=== PATIENT | female | born 1940 | race Caucasian/White ===

== ENCOUNTER 2024-04-25 08:13 | Inpatient (IN) | payer MEDICARE, OTHER, SELFPAY ==
[2024-04-20] VITALS (8 sets, daily range): BP systolic 110–154; BP diastolic 54–114; BMI 39.7; BMI 39.8
[2024-04-20 10:32] LABS: % Basophils 0.2 % (0-2); % Eosinophils 0.2 % (0-6); % Immature Granulocytes 0.4 % (0-0.5); % Lymphocytes 24.8 % (20.5-51.1); % Monocytes 11.3 % (1.7-9.3); % Neutrophils 63.1 % (42.2-75.2); Absolute Lymphocytes 1.3 10^3/uL (1.2-3.4); Absolute Monocytes 0.6 10^3/uL (0.1-0.6); Absolute Neutrophils 3.3 10^3/uL (1.4-6.5); Hematocrit 32.5 % (37.0-47.0); Hemoglobin 10.8 g/dL (12.0-16.0); Mean Corp Hgb Conc. 33.2 g/dL (33.0-37.0); Mean Corpuscular Hgb 28.3 pg (27.0-31.0); Mean Corpuscular Volume 85.1 fL (81.0-99.0); Mean Platelet Volume 11.7 fL (7.4-10.4); Nucleated Red Blood Cells % 0 %; Platelet Count 95 10^3/uL (130-400); Red Blood Cell Count 3.82 10^6/uL (4.20-5.40); Red Cell Dist. Width 14.1 % (11.5-14.5); White Blood Cell Count 5.2 10^3/uL (4.8-10.8)
[2024-04-20 10:45] LABS: ALT (SGPT) 33 U/L (0-35); AST (SGOT) 36 U/L (14-36); Albumin 3.4 g/dl (3.5-5.0); Alkaline Phosphatase 75 U/L (38-126); Blood Urea Nitrogen 34 mg/dl (7-17); Carbon Dioxide 31 mmol/L (22-30); Chloride 95 mmol/L (98-107); Estimated Creatinine Clearance 53 ml/min; Glucose 146 mg/dl (70-99); Potassium 3.9 mmol/L (3.5-5.1); Sodium 134 mmol/L (135-145); Total Bilirubin 0.8 mg/dl (0.2-1.3); Total Protein 6.4 g/dl (6.3-8.2); eGFR > 60.00
[2024-04-20 10:56] LABS: COVID-19 Antigen Negative (Negative)
[2024-04-20 11:10] LABS: Lactic Acid 1.1 mmol/L (0.7-2.0)
[2024-04-20] MEDS: DECADRON 10 MG IV (11:14)
[2024-04-20] MEDS: DUONEB 3 ML INH ×2 (11:14→14:25)
--- NOTE | 2024-04-20 11:48 | ED.GENMED ---
History of Present Illness
General
Chief Complaint: Breathing Problem
Source: patient and family
Exam Limitations: none
Time Seen by Provider: 04/20/24 10:11
Nursing documentation reviewed up to this point in time: agreed with
History of Present Illness
History of Present Illness:
84-year-old female past medical history of dementia, hypertension diabetes presenting to the emergency department today with concerns of generalized weakness fatigue altered mental status coughing shortness of breath worsening over the past 2 days.
Daughter also claims of had a flu like illness. She denies any specific chest pain. Here patient does have diffuse expiratory wheezing plan to start DuoNeb as well as steroid.
Past History
Past History
ED Past Medical History: HTN and IDDM
Social History
Tobacco: Non-smoker
Alcohol: None
Drug: None
Living: with family
Employment: Retired
Family History
Family History: Other (Daughter with COVID)
Review of Systems
Review of Systems
Allergies reviewed?: Yes
Unable to obtain full review of systems at this time due to: dementia
All Other Systems: ROS reviewed and negative except as documented in HPI and ROS
Phy Exam
Physical Exam
Physical Exam:
GENERAL: Alert , in no apparent distress
EYE: pupils equal and reactive
NECK: Supple, no significant adenopathy.
ENT: o/p clr, mmm.
CARDIAC: Regular rate and rhythm .
LUNGS: Diffuse expiratory wheezing
ABDOMEN: Soft, without focal tenderness, no r/g, no cvat
NEUROLOGICAL: Alert not oriented to person place or time no focal neuro deficits
SKIN: Warm and dry, skin intact.
MUSCULOSKELETAL: No edema, well perfused.
PSYCH: Normal and appropriate interaction.
Scores
Heart Failure Risk
Heart Failure Risk Score: Not Applicable
Course
Orders/Labs/Results
Orders:
Orders
04/20/24 10:19
COVID-19 Antigen Urgent
Source: Nasal Swab
Influenza A+B Rapid Molecular Urgent
CHARLES Source: Nasal Swab
Specimen Description:
04/20/24 10:23
Complete Blood Count/With Diff Urgent
Comprehensive Metabolic Panel Urgent
04/20/24 10:25
Urinalysis Reflex To Culture Urgent
Dexamethasone Sod Phosphate [Decadron] 10 mg IV NOW STA
Ipratropium/Albuterol Sulfate [Duoneb] 3 ml INH R NOW ONE
Chest [CR Chest - 2 Views ] Urgent
Comment:
Reason For Exam: cough fever/sob
04/20/24 10:43
Lactic Acid Urgent
04/20/24 14:13
Ipratropium/Albuterol Sulfate [Duoneb] 3 ml INH R NOW ONE
Oseltamivir Phosphate [Tamiflu] 75 mg PO NOW STA
Abnormal Lab Results
04/20/24 04/20/24
10:23 11:47
RBC 3.82 L 10^6/uL
(4.20-5.40)
Hgb 10.8 L g/dL
(12.0-16.0)
Hct 32.5 L %
(37.0-47.0)
Plt Count 95 L 10^3/uL
(130-400)
MPV 11.7 H fL
(7.4-10.4)
Monocytes % 11.3 H %
(1.7-9.3)
Sodium 134 L mmol/L
(135-145)
Chloride 95 L mmol/L
(98-107)
Carbon Dioxide 31 H mmol/L
(22-30)
BUN 34 H mg/dl
(7-17)
Glucose 146 H mg/dl
(70-99)
Calcium 8.0 L mg/dl
(8.4-10.2)
Albumin 3.4 L g/dl
(3.5-5.0)
POC Glucose 139 H mg/dl
(70-99)
04/20/24 10:23
04/20/24 10:23
Vital Signs
Initial and Last Documented VS:
Initial Vital Signs
Temp Pulse Resp BP Pulse Ox
100.2 F 64 16 117/100 90
04/20/24 10:09 04/20/24 10:09 04/20/24 10:09 04/20/24 10:09 04/20/24 10:09
Last Documented Vital Signs
Temp Pulse Resp BP Pulse Ox
100.2 F 69 17 136/94 94
04/20/24 10:09 04/20/24 13:45 04/20/24 13:45 04/20/24 13:00 04/20/24 13:30
MDM/Problems Addressed
MDM/Problems Addressed:
84-year-old female presenting to the emergency department today with concerns of worsened confusion generalized weakness fatigue and respiratory issues over the past few days. Here she has significant expiratory wheezing with started on DuoNeb and
steroid. X-ray did not show any evidence of pneumonia. Patient was given DuoNeb and steroid reassess still ongoing significant wheezing. Also positive for the flu. Plan to admit concerning patient has dementia lives at home in private residence
is much weaker than usual trouble with ambulating today. Also started on Tamiflu today.
*Critical Care Note
Total Time (30-74mins, 75-104mins- exclusive of procedures): Not Applicable
ED Attending Note
-
Portions of this chart may have been created with voice recognition software.� Occasional wrong word or��sound alike� substitutions may have occurred due to the inherent limitations of voice recognition software.
Discharge Plan
Departure
Patient Disposition: Admit
Date of Disposition: 04/20/24
Time of Disposition: 14:19
Admit to: Med/Surg
Admit to doctor: Juvencio
Presentation/result/management discussed w/ accepting MD/DO: Hospitalist
Patient with high blood pressure during this ER visit?: No
Condition: Good
Covid-19: Not Applicable
Discharge Problem:
Influenza, Asthma exacerbation
Prescriptions:
No Action
losartan 50 mg Tablet
50 mg PO DAILY
pioglitazone [Actos] 15 mg Tablet
15 mg PO DAILY
metformin 500 mg Tablet
500 mg PO BID
promethazine-DM 6.25-15 mg/5 mL Syrup
5 ml PO QIDPRN PRN (Reason: COUGH)
carvedilol [Coreg] 12.5 mg Tablet
12.5 mg PO BID
albuterol sulfate 2.5 mg /3 mL (0.083 %) Solution For Nebulization
2.5 mg INHALATION R Q4HPRN PRN (Reason: SOB)
azithromycin 250 mg Tablet
0 mg PO .COMPLEX
Rx Instructions:
For 250 mg dose pack: take 500 mg today (day 1), then 250 mg for 4 days (days 2-5)
indapamide 2.5 mg Tablet
2.5 mg PO DAILY
repaglinide 1 mg Tablet
1 mg PO BID
memantine 10 mg Tablet
10 mg PO BID
insulin glargine-yfgn 100 unit/mL (3 mL) Insulin Pen
20 unit SC BID
magnesium oxide 400 mg magnesium Tablet
400 mg PO DAILY
loperamide 2 mg Tablet
2 mg PO Q6HPRN PRN (Reason: diarrhea)
Referrals:
Kevin Mcgee DO [Family Provider] -
Interventions
Interventions:
*Risk Screen - Suicide Last Done: 04/20/24 10:15
*General Assessment Last Done: 04/20/24 11:38
*Neglect/Abuse Screening Last Done: 04/20/24 10:15
*ED COVID-19 Vaccine History Last Done: 04/20/24 11:38
ED- Cardiac Assessment Last Done: 04/20/24 10:29
ED- Neurological Assessment Last Done: 04/20/24 10:29
ED- Pulmonary Assessment Last Done: 04/20/24 10:29
Discharge Date and Time
Print Language: UKRAINIAN
[2024-04-20 11:49] LABS: Glucose - Point of Care 139 mg/dl (70-99)
--- NOTE | 2024-04-20 14:22 | HPS.HSE ---
Family Physician
-
Family Physician: Kevin Mcgee
Chief Complaint
-
Shortness of breath
History of Present Illness
Patient 84 years old female with history of hypertension, diabetes mellitus, dementia, came into the hospital with cough and shortness of breath. I am unable to gather accurate information from the patient due to her dementia so most of the
information from the medical records and ER staff. Patient has been having increasing cough associated with shortness of breath over the last couple days associated with generalized malaise and generalized weakness and some mental status changes.
Patient was started on IV steroids and Tamiflu as well as DuoNeb in the ED. She had a chest x-ray unremarkable for any acute abnormalities. She was referred to hospitalist service for evaluation.
Medical History
Past Medical History
Past Medical History: Reports Other (Hypertension, diabetes mellitus, dementia.)
Past Surgical History: Reports None
Social History
Unable to obtain full social history at this time due to: Dementia
Family History
Family History: Not pertinent
Allergies / Home Medications
Allergies reflects when Allergies were last updated in [facility].
Home Medications with original date entered in [facility]
Allergy/Medication List:
Allergies
Allergy/AdvReac Type Severity Reaction Status Date / Time
No Known Allergies Allergy Unverified 04/20/24 10:09
Home Medications
albuterol sulfate 2.5 mg/3 mL (0.083 %) solution for nebulization 2.5 mg inhalation R Q4HPRN PRN SOB 04/20/24
azithromycin 250 mg tablet 0 mg PO .COMPLEX Infection 04/20/24
carvedilol 12.5 mg tablet (Coreg) 12.5 mg PO BID Blood Pressure 04/20/24
indapamide 2.5 mg tablet 2.5 mg PO DAILY Blood Pressure 04/20/24
insulin glargine-yfgn 100 unit/mL (3 mL) subcutaneous pen 20 unit SC BID Diabetes 04/20/24
loperamide 2 mg tablet 2 mg PO Q6HPRN PRN diarrhea 04/20/24
losartan 50 mg tablet 50 mg PO DAILY Blood Pressure 04/20/24
magnesium oxide 400 mg PO DAILY Supplement 04/20/24
memantine 10 mg tablet 10 mg PO BID Neurological Condition 04/20/24
metformin 500 mg tablet 500 mg PO BID Diabetes 04/20/24
pioglitazone 15 mg tablet (Actos) 15 mg PO DAILY Diabetes 04/20/24
promethazine-DM 6.25 mg-15 mg/5 mL oral syrup 5 ml PO QIDPRN PRN COUGH 04/20/24
repaglinide 1 mg tablet 1 mg PO BID Diabetes 04/20/24
Review of Systems
-
Unable to obtain full review of systems at this time due to: Dementia
Physical Exam
Vital Signs
Vital Signs
Temp Pulse Resp BP Pulse Ox
100.2 F 69 17 136/94 94
04/20/24 10:09 04/20/24 13:45 04/20/24 13:45 04/20/24 13:00 04/20/24 13:30
Physical exam:
General: Acutely ill
HEENT: Normocephalic, Atraumatic and Moist Mucous Membranes
Respiratory: Few rhonchi bilaterally; Negative Wheezes, Rales
Cardiac: Regular Rhythm and S1/S2
GI: Soft, Nontender and Nondistended
Musculoskeletal: No Clubbing, No Cyanosis and No Edema
Neuro: Awake, Alert and disoriented, no neurological deficit
Psych: Calm
Physical Exam
General: Other
Laboratory Results
-
04/20/24 10:23
04/20/24 10:23
Laboratory Results
Lactic Acid 1.1 mmol/L (0.7-2.0) 04/20/24 10:43
Total Bilirubin 0.8 mg/dl (0.2-1.3) 04/20/24 10:23
AST 36 U/L (14-36) 04/20/24 10:23
ALT 33 U/L (0-35) 04/20/24 10:23
Alkaline Phosphatase 75 U/L (38-126) 04/20/24 10:23
Data Reviewed
-
Diagnostic Radiology: Image Personally Visualized and interpreted
Lab Data: Labs Reviewed by me
Impression/Plan
-
IMPRESSION:
Patient 84 years old female who has multiple comorbidities came into the hospital cough shortness of breath and found to have influenza A. She also has a bronchospasm in the ER given some steroids.
PLAN:
Acute influenza A:
Tamiflu
Monitor respiratory status
Chest x-ray no evidence of pneumonia
Bronchospasm:
She was given IV steroids in the ER and by the time of my evaluation she was much improved
Consider oral steroids but can inhibit viral replication-but if she needs it we will do a short course.
Hypertension:
Continue home antihypertensive
Diabetes mellitus type 2:
Insulin sliding scale
Diabetic diet
Continue oral hypoglycemics with pioglitazone and repaglinide but hold metformin
Monitor blood sugars and adjust medications according
Update hemoglobin A1c
Dementia:
Continue Namenda
Monitor behavioral status
DVT prophylaxis:
Lovenox SQ
CODE STATUS:
Full code
Time spent 75 min
[2024-04-20] MEDS: TAMIFLU 75 MG PO (14:25)
[2024-04-20] MEDS: LOVENOX 40 MG SC (20:10)
[2024-04-20] MEDS: LOZOL 2.5 MG PO (20:10)
[2024-04-20] MEDS: ACTOS 15 MG PO (20:10)
[2024-04-20] MEDS: COZAAR 50 MG PO (20:10)
[2024-04-20] MEDS: COREG 12.5 MG PO (20:35)
[2024-04-20] MEDS: PRANDIN 1 MG PO (20:35)
[2024-04-20] MEDS: NAMENDA 10 MG PO (20:35)
--- NOTE | 2024-04-20 21:00 | TRANSFER ---
Pt admitted from ED to room 424. Pt assisted to stand and pivot to bed. Pt on 4 liters 02 98%. Pt disoriented to place and time, bed alarm in placed for safety. Pt oriented to plan of care and call parra within reach.
[2024-04-20 21:35] LABS: Glucose - Point of Care 346 mg/dl (70-99)
[2024-04-20] MEDS: VENTOLIN NEBULES 2.5 MG INH (21:47)
[2024-04-20] MEDS: NOVOLOG FLEXPEN 10 UNITS SC (22:10)
[2024-04-20] MEDS: LANTUS 0.2 UNITS SC (22:10)
[2024-04-20] MEDS: TAMIFLU 30 MG PO (22:10)
[2024-04-20] MEDS: NOVOLOG FLEXPEN-MODERATE RESISTANCE SC (23:08)
[2024-04-21 07:42] LABS: Glucose - Point of Care 195 mg/dl (70-99)
[2024-04-21 07:43] VITALS: BP 143/44
--- NOTE | 2024-04-21 08:49 | W.PN.HOSP.TC ---
Today's Communication/Plan
-
Tamiflu. Steroids
Assessment / Plan
Assessment / Plan
Physical exam:
General: Acute on chronically ill
HEENT: Normocephalic, Atraumatic and Moist Mucous Membranes
Respiratory: Bilateral rhonchi; Negative Wheezes, Rales
Cardiac: Regular Rhythm and S1/S2
GI: Soft, Nontender and Nondistended
Musculoskeletal: No Clubbing, No Cyanosis and No Edema
Neuro: Awake, Alert and disoriented, no gross neurological deficit
Psych: Calm
A/P:
Acute influenza A:
Tamiflu
Monitor respiratory status
Chest x-ray no evidence of pneumonia
Bronchospasm:
She was given IV steroids in the ER and by the time of my evaluation she was much improved
Continue short oral course of steroids
Hypertension:
Continue home antihypertensive
Diabetes mellitus type 2:
Insulin sliding scale
Diabetic diet
Continue oral hypoglycemics with pioglitazone and repaglinide but hold metformin
Monitor blood sugars and adjust medications according
Update hemoglobin A1c
Dementia:
Continue Namenda
Monitor behavioral status
DVT prophylaxis:
Lovenox SQ
CODE STATUS:
Full code
Anticipated Discharge: 24 - 48 hours
Subjective/Interval History
-
Date of Service: April 21, 2024
Patient with some shortness of breath. Afebrile
Objective Data
-
Labs:
Laboratory Results
04/21/24
07:58
WBC Pending
Hgb Pending
Hct Pending
Plt Count Pending
Sodium Pending
Potassium Pending
Chloride Pending
Carbon Dioxide Pending
BUN Pending
Creatinine Pending
Glucose Pending
Calcium Pending
Vital Signs:
Vital Signs
Temp Pulse Resp BP Pulse Ox
97.8 F 66 22 114/54 94
04/20/24 23:00 04/20/24 23:00 04/20/24 23:00 04/20/24 23:00 04/21/24 03:40
I&O
04/20/24 04/21/24 04/22/24
06:59 06:59 06:59
Intake Total 240 / 240
Balance 240 / 240
[2024-04-21] MEDS: LOZOL 2.5 MG PO (09:06)
[2024-04-21] MEDS: TAMIFLU 30 MG PO ×2 (09:06→20:20)
[2024-04-21] MEDS: MAG-TAB SR 84 MG PO (09:07)
[2024-04-21] MEDS: DELTASONE 40 MG PO (09:07)
[2024-04-21] MEDS: ACTOS 15 MG PO (09:07)
[2024-04-21] MEDS: NAMENDA 10 MG PO ×2 (09:07→20:20)
[2024-04-21] MEDS: PRANDIN 1 MG PO ×2 (09:07→20:20)
[2024-04-21] MEDS: COZAAR 50 MG PO (09:08)
[2024-04-21] MEDS: COREG 12.5 MG PO ×2 (09:08→20:20)
[2024-04-21 09:17] LABS: Blood Urea Nitrogen 37 mg/dl (7-17); Calcium 8.8 mg/dl (8.4-10.2); Carbon Dioxide 27 mmol/L (22-30); Chloride 98 mmol/L (98-107); Estimated Creatinine Clearance 57 ml/min; Glucose 178 mg/dl (70-99); Sodium 136 mmol/L (135-145); eGFR > 60.00
[2024-04-21 09:19] LABS: % Immature Granulocytes 0.2 % (0-0.5); % Lymphocytes 26.4 % (20.5-51.1); % Monocytes 10.2 % (1.7-9.3); % Neutrophils 63.2 % (42.2-75.2); Absolute Lymphocytes 1.2 10^3/uL (1.2-3.4); Absolute Monocytes 0.5 10^3/uL (0.1-0.6); Absolute Neutrophils 2.8 10^3/uL (1.4-6.5); Hematocrit 34.1 % (37.0-47.0); Hemoglobin 11.5 g/dL (12.0-16.0); Mean Corp Hgb Conc. 33.7 g/dL (33.0-37.0); Nucleated Red Blood Cells % 0 %; Platelet Count 106 10^3/uL (130-400); Red Blood Cell Count 4.11 10^6/uL (4.20-5.40); Red Cell Dist. Width 13.5 % (11.5-14.5); White Blood Cell Count 5.3 10^3/uL (4.8-10.8)
[2024-04-21] MEDS: NOVOLOG FLEXPEN-MODERATE RESISTANCE 1 UNITS SC (09:24)
[2024-04-21] MEDS: LANTUS 0.2 UNITS SC ×2 (09:24→23:56)
[2024-04-21 12:38] LABS: Glucose - Point of Care 333 mg/dl (70-99)
[2024-04-21] MEDS: NOVOLOG FLEXPEN-MODERATE RESISTANCE 7 UNITS SC ×2 (12:42→16:50)
[2024-04-21 12:50] LABS: Glycohemoglobin (HgbA1c) 9.4 % (4.0-5.6)
[2024-04-21 14:54] VITALS: BP 118/60; PULSE 59; PULSE 60; O2SAT 97; O2SAT 98
[2024-04-21 15:12] VITALS: BP 104/62
[2024-04-21 16:33] LABS: Glucose - Point of Care 322 mg/dl (70-99)
[2024-04-21 16:39] LABS: Urine Albumin Negative (Neg - Trace); Urine Bilirubin Negative (Negative); Urine Character Clear (Clear); Urine Color Yellow; Urine Glucose 3+ (Negative); Urine Ketone Negative (Negative); Urine Leukocyte Negative (Negative); Urine Nitrite Negative (Negative); Urine Occult Blood Negative (Negative); Urine Specific Gravity 1.015 (<1.030); Urine Urobilinogen Negative (Neg - 1+)
[2024-04-21] MEDS: LOVENOX 40 MG SC (16:50)
[2024-04-21 22:00] LABS: Glucose - Point of Care 410 mg/dl (70-99)
[2024-04-21 22:51] LABS: Glucose 412 mg/dl (70-99)
[2024-04-21] MEDS: NOVOLOG FLEXPEN 11 UNITS SC (23:56)
[2024-04-22 00:01] VITALS: BP 154/59
[2024-04-22 02:44] LABS: Glucose - Point of Care 203 mg/dl (70-99)
[2024-04-22 08:16] LABS: Glucose - Point of Care 130 mg/dl (70-99)
[2024-04-22] MEDS: NOVOLOG FLEXPEN-MODERATE RESISTANCE SC (08:21)
[2024-04-22] MEDS: TAMIFLU 30 MG PO ×2 (08:24→20:25)
[2024-04-22] MEDS: MAG-TAB SR 84 MG PO (08:24)
[2024-04-22] MEDS: PRANDIN 1 MG PO ×2 (08:24→20:25)
[2024-04-22] MEDS: NAMENDA 10 MG PO ×2 (08:24→20:25)
[2024-04-22] MEDS: COZAAR 50 MG PO (08:25)
[2024-04-22] MEDS: COREG 12.5 MG PO ×2 (08:25→20:25)
[2024-04-22] MEDS: LOZOL 2.5 MG PO (08:25)
[2024-04-22] MEDS: ACTOS 15 MG PO (08:25)
[2024-04-22] MEDS: DELTASONE 30 MG PO (08:25)
[2024-04-22] MEDS: LANTUS 0.2 UNITS SC ×2 (08:27→21:41)
[2024-04-22 08:52] VITALS: BP 157/59
--- NOTE | 2024-04-22 10:21 | W.PN.HOSP.TC ---
Today's Communication/Plan
-
Continue Tamiflu. Discharge planning
Assessment / Plan
Assessment / Plan
Physical exam:
General: Acute on chronically ill
HEENT: Normocephalic, Atraumatic and Moist Mucous Membranes
Respiratory: Bilateral rhonchi; Negative Wheezes, Rales
Cardiac: Regular Rhythm and S1/S2
GI: Soft, Nontender and Nondistended
Musculoskeletal: No Clubbing, No Cyanosis and No Edema
Neuro: Awake, Alert and disoriented, no gross neurological deficit
Psych: Calm
A/P:
Acute influenza A:
Tamiflu
Monitor respiratory status
Chest x-ray no evidence of pneumonia
Tried to reach family but unsuccessful today. I did talk to nurse case manager who was able to discuss with family earlier today and apparently relatives are all sick with viral illness and they would not be able to take her home anyway at least today.
Bronchospasm:
Improving
Received some steroids intravenous and oral.
I think at this juncture we will stop the steroids since she is not bronchospastic and as I said before this would impair viral replication, make her diabetes less well-controlled, and also can induce psychosis in a patient with dementia.
Reevaluate clinically
Hypertension:
Continue home antihypertensive
Diabetes mellitus type 2:
Insulin sliding scale
Diabetic diet
Continue oral hypoglycemics with pioglitazone and repaglinide but hold metformin
Monitor blood sugars and adjust medications according
Update hemoglobin A1c
Dementia:
Continue Namenda
Monitor behavioral status
DVT prophylaxis:
Lovenox SQ
CODE STATUS:
Full code
Anticipated Discharge: Within 24 hours
Subjective/Interval History
-
Date of Service: April 22, 2024
Patient alert but disoriented. Less cough. Afebrile
Objective Data
-
Labs:
Laboratory Results
04/21/24
22:14
Glucose 412 H
Vital Signs:
Vital Signs
Temp Pulse Resp BP Pulse Ox
97.6 F 54 20 157/59 99
04/22/24 08:52 04/22/24 08:52 04/22/24 08:52 04/22/24 08:52 04/22/24 08:52
I&O
04/21/24 04/22/24 04/23/24
06:59 06:59 06:59
Intake Total 240 / 240 240 / 240
Output Total 300 / 300
Balance 240 / 240 -60 / -60
--- NOTE | 2024-04-22 11:57 | CM ---
Pt has dementia, unable to participate in assessment. CM spoke w/ pt's daughter, Emelia, who is currently w/ the flu. Initial assessment completed. Admitted for cough and shortness of breath. Positive for flu.
Emelia stated that pt lives w/ her in a [facility]ST[facility]- 4 steps to enter. Pt is independent in the home but does use a walker when out in the community. Emelia stated she assists pt w/ bathing, toileting, cooking meals, and medication administration.
Denies SNF/VN/PT hx. Emelia stated pt does not receive any home or OP services but does go to an adult day care during the week but hasn't been going because she's been sick.
Address, points of contact and insurance verified
PCP: Dr. Mcgee
Pharmacy: [facility]. Pt does use [facility] for mail orders
PT evaluated and is recommending HH at d/c. CM discussed w/ Emelia who will decide if pt needs this closer to d/c.
Pt is admitted as OBS. ROCA reviewed w/ daughter, copy on chart
Plan: Home w/ HH if daughter is agreeable at d/c
[2024-04-22 12:09] LABS: Glucose - Point of Care 266 mg/dl (70-99)
[2024-04-22] MEDS: NOVOLOG FLEXPEN-MODERATE RESISTANCE 5 UNITS SC (12:11)
[2024-04-22 15:15] VITALS: BP 151/68
[2024-04-22 16:52] LABS: Glucose - Point of Care 323 mg/dl (70-99)
[2024-04-22] MEDS: NOVOLOG FLEXPEN-MODERATE RESISTANCE 7 UNITS SC (17:24)
[2024-04-22] MEDS: LOVENOX 40 MG SC (17:25)
[2024-04-22 21:15] LABS: Glucose - Point of Care 281 mg/dl (70-99)
[2024-04-22 23:49] VITALS: BP 140/60
[2024-04-23 07:00] VITALS: BP 160/64
[2024-04-23 08:02] LABS: Glucose - Point of Care 97 mg/dl (70-99)
[2024-04-23] MEDS: NOVOLOG FLEXPEN-MODERATE RESISTANCE SC (08:12)
[2024-04-23] MEDS: LANTUS 0.2 UNITS SC (08:17)
[2024-04-23] MEDS: TAMIFLU 30 MG PO ×2 (08:18→19:18)
[2024-04-23] MEDS: NAMENDA 10 MG PO ×2 (08:18→19:18)
[2024-04-23] MEDS: ACTOS 15 MG PO (08:18)
[2024-04-23] MEDS: COZAAR 50 MG PO (08:18)
[2024-04-23] MEDS: COREG 12.5 MG PO ×2 (08:18→19:18)
[2024-04-23] MEDS: PRANDIN 1 MG PO ×2 (08:18→19:18)
[2024-04-23] MEDS: MAG-TAB SR 84 MG PO (08:18)
[2024-04-23] MEDS: LOZOL 2.5 MG PO (08:18)
--- NOTE | 2024-04-23 10:01 | W.PN.HOSP.TC ---
Today's Communication/Plan
-
chest x ray in am
one dose steroid IV
Tamiflu day 4
Assessment / Plan
Assessment / Plan
Physical exam:
General: not in distress, chronically ill
HEENT: Normocephalic, Atraumatic and Moist Mucous Membranes
Respiratory: Bilateral Wheezes, Rales
Cardiac: Regular Rhythm and S1/S2
GI: Soft, Nontender and Nondistended
Musculoskeletal: No Clubbing, No Cyanosis and No Edema
Neuro: Awake, Alert and disoriented X3 , no gross neurological deficit
Psych: Calm
A/P:
Acute influenza A:
Much less wheezing with no significant cough
Tamiflu, day 4
Monitored respiratory status
Chest x-ray no evidence of pneumonia
Will repeat chest x ray in am
Added SoluMedrol 40 mg QD one time to re-assess
Added Mucinex
# Essential Hypertension:
Continue home antihypertensive
Diabetes mellitus type 2:
Uncontrolled, will give extra dose of Lantus since we gave steroid.
Insulin sliding scale
Diabetic diet
Continue oral hypoglycemics with pioglitazone and repaglinide but hold metformin
Monitor blood sugars and adjust medications according
Update hemoglobin A1c 9.4 ( poorly controlled in OP setting, advised to f/w PCP)
Dementia:
Continue Namenda
Monitor behavioral status
DVT prophylaxis:
Lovenox SQ
CODE STATUS:
Full code
Total time spent to see the patient, examine the patient, review data and lab results, discuss treatment plan with patient and nursing staff around 55 minutes
Anticipated Discharge: 24 - 48 hours
Subjective/Interval History
-
Date of Service: April 23, 2024
Still wheezes with cough
Objective Data
-
Vital Signs:
Vital Signs
Temp Pulse Resp BP Pulse Ox
98.1 F 56 22 160/64 99
04/23/24 07:00 04/23/24 07:00 04/23/24 07:00 04/23/24 07:00 04/23/24 07:00
I&O
04/22/24 04/23/24 04/24/24
06:59 06:59 06:59
Intake Total 240 / 240 1380 / 1380
Output Total 300 / 300
Balance -60 / -60 1380 / 1380
[2024-04-23 11:36] LABS: Glucose - Point of Care 182 mg/dl (70-99)
[2024-04-23] MEDS: NOVOLOG FLEXPEN-MODERATE RESISTANCE 1 UNITS SC (13:01)
[2024-04-23] MEDS: SOLU-MEDROL PF 40 MG IV (14:24)
[2024-04-23 15:00] VITALS: BP 132/55
[2024-04-23 16:44] LABS: Glucose - Point of Care 247 mg/dl (70-99)
[2024-04-23] MEDS: NOVOLOG FLEXPEN-MODERATE RESISTANCE 3 UNITS SC (17:30)
[2024-04-23] MEDS: LOVENOX 40 MG SC (17:30)
[2024-04-23 21:44] LABS: Glucose - Point of Care 425 mg/dl (70-99)
[2024-04-23 23:05] VITALS: BP 130/52
[2024-04-23 23:17] LABS: Glucose 443 mg/dl (70-99)
[2024-04-24] MEDS: NOVOLOG FLEXPEN 11 UNITS SC (00:17)
[2024-04-24] MEDS: LANTUS 0.2 UNITS SC ×2 (00:17→09:34)
[2024-04-24 02:47] LABS: Glucose - Point of Care 333 mg/dl (70-99)
[2024-04-24 07:00] VITALS: BP 173/67
[2024-04-24 07:58] LABS: Glucose - Point of Care 220 mg/dl (70-99)
[2024-04-24 09:11] VITALS: O2SAT 95
[2024-04-24] MEDS: COREG 12.5 MG PO ×2 (09:27→19:33)
[2024-04-24] MEDS: COZAAR 50 MG PO (09:29)
[2024-04-24] MEDS: TAMIFLU 30 MG PO ×2 (09:29→19:33)
[2024-04-24] MEDS: MAG-TAB SR 84 MG PO (09:29)
[2024-04-24] MEDS: ACTOS 15 MG PO (09:29)
[2024-04-24] MEDS: PRANDIN 1 MG PO ×2 (09:29→19:34)
[2024-04-24] MEDS: NAMENDA 10 MG PO ×2 (09:29→19:33)
[2024-04-24] MEDS: LOZOL 2.5 MG PO (09:30)
[2024-04-24] MEDS: NOVOLOG FLEXPEN-MODERATE RESISTANCE 3 UNITS SC (09:31)
[2024-04-24 12:01] LABS: Glucose - Point of Care 267 mg/dl (70-99)
--- NOTE | 2024-04-24 12:17 | CM ---
CM reviewed chart, call placed to patients daughter, Emelia, to discuss VN recommendation. Patients daughter reports patient attends [facility] 9:30-5:00 p.m. is not considered homebound, aware PCP can order VN services after discharge.
Daughter reports she also is sick with flu, will provide transportation home to patient when stable. CM will continue to follow for all discharge planning needs.
Plan; home with daughter when stable.
[2024-04-24] MEDS: NOVOLOG FLEXPEN-MODERATE RESISTANCE 5 UNITS SC ×2 (13:05→17:34)
--- NOTE | 2024-04-24 13:22 | W.PN.HOSP.TC ---
Today's Communication/Plan
-
Increase Lantus
Add pre-meal insulin
d/w daughter over the phone, dc in am
Assessment / Plan
Assessment / Plan
Physical exam:
General: not in distress, chronically ill
HEENT: Normocephalic, Atraumatic and Moist Mucous Membranes
Respiratory: much Bilateral Wheezes, Rales
Cardiac: Regular Rhythm and S1/S2
GI: Soft, Nontender and Nondistended
Musculoskeletal: No Clubbing, No Cyanosis and No Edema
Neuro: Awake, Alert and disoriented X3 , no gross neurological deficit
Psych: Calm
A/P:
Acute influenza A:
Much less wheezing with no significant cough
Tamiflu, day 5
Monitored respiratory status
Chest x-ray no evidence of pneumonia
repeat chest x ray, No acute cardiopulmonary process.
Given SoluMedrol 40 mg QD X one time dose 2/3.
Added Mucinex
# Essential Hypertension:
Continue home antihypertensive
Diabetes mellitus type 2:
Uncontrolled, will give extra dose of Lantus BID. Add pre-meal insulin
Insulin sliding scale
Diabetic diet
Continue oral hypoglycemics with pioglitazone and repaglinide but hold metformin
Monitor blood sugars and adjust medications according
Update hemoglobin A1c 9.4. D/w Daughter , she seems to manage her mother's medications well and monitor her blood glucose but sometimes patient does not follow diabetic diet when she is at the daycare.
Dementia:
Continue Namenda
Monitor behavioral status
DVT prophylaxis:
Lovenox SQ
CODE STATUS:
Full code
Total time spent to see the patient, examine the patient, review data and lab results, discuss treatment plan with patient, daughter and nursing staff around 55 minutes
Anticipated Discharge: Within 24 hours
Subjective/Interval History
-
Date of Service: April 24, 2024
Objective Data
-
Vital Signs:
Vital Signs
Temp Pulse Resp BP Pulse Ox
97.5 F 60 18 173/67 95
04/24/24 07:00 04/24/24 07:00 04/24/24 07:00 04/24/24 07:00 04/24/24 07:00
I&O
04/23/24 04/24/24 04/25/24
06:59 06:59 06:59
Intake Total 1380 / 1380 1020 / 1020
Balance 1380 / 1380 1020 / 1020
[2024-04-24 15:49] VITALS: BP 138/44
[2024-04-24 16:55] LABS: Glucose - Point of Care 277 mg/dl (70-99)
[2024-04-24] MEDS: NOVOLOG FLEXPEN 7 UNITS SC (17:32)
[2024-04-24] MEDS: LOVENOX 40 MG SC (17:34)
[2024-04-24 21:48] LABS: Glucose - Point of Care 177 mg/dl (70-99)
[2024-04-24] MEDS: LANTUS 0.3 UNITS SC (21:59)
[2024-04-24 23:37] VITALS: BP 162/59
[2024-04-25 07:00] VITALS: BP 147/58
[2024-04-25 07:37] LABS: Glucose - Point of Care 65 mg/dl (70-99)
[2024-04-25 07:57] LABS: Glucose - Point of Care 73 mg/dl (70-99)
[2024-04-25] MEDS: NOVOLOG FLEXPEN-MODERATE RESISTANCE SC (08:05)
[2024-04-25] MEDS: LANTUS SC (08:30)
[2024-04-25] MEDS: NOVOLOG FLEXPEN SC (08:30)
--- NOTE | 2024-04-25 08:30 | PTCARENOTE ---
Pt blood sugar this AM 65, after given juice/sugar BS was rechecked 15 min later to be 73. Dr. Finley made aware, Pt breakfast ordered/given ensure. MD order to hold AM lantus/mealtime insulin. Will continue to monitor.
[2024-04-25] MEDS: PRANDIN 1 MG PO (08:34)
[2024-04-25] MEDS: LOZOL 2.5 MG PO (08:34)
[2024-04-25] MEDS: ACTOS 15 MG PO (08:34)
[2024-04-25] MEDS: NAMENDA 10 MG PO (08:34)
[2024-04-25] MEDS: COREG 12.5 MG PO (08:34)
[2024-04-25] MEDS: COZAAR 50 MG PO (08:34)
[2024-04-25] MEDS: MAG-TAB SR 84 MG PO (08:34)
[2024-04-25] MEDS: TAMIFLU 30 MG PO (08:34)
--- NOTE | 2024-04-25 09:08 | W.PN.HOSP.TC ---
Today's Communication/Plan
-
discharge
Assessment / Plan
Assessment / Plan
Physical exam:
General: not in distress, chronically ill
HEENT: Normocephalic, Atraumatic and Moist Mucous Membranes
Respiratory: No l Wheezes, Rales
Cardiac: Regular Rhythm and S1/S2
GI: Soft, Nontender and Nondistended
Musculoskeletal: No Clubbing, No Cyanosis and No Edema
Neuro: Awake, Alert and disoriented X3 , no gross neurological deficit
Psych: Calm
A/P:
Acute influenza A:
Much less wheezing with no significant cough
Tamiflu, day 5
Monitored respiratory status
Chest x-ray no evidence of pneumonia
repeat chest x ray, No acute cardiopulmonary process.
Given SoluMedrol 40 mg QD X one time dose 2/3.
Added Mucinex
# Essential Hypertension:
Continue home antihypertensive
Diabetes mellitus type 2:
She has labile diabetes, blood glucose is low, holding AM insulin for now
Insulin sliding scale
Diabetic diet
Continue oral hypoglycemics with pioglitazone and repaglinide but hold metformin
Monitor blood sugars and adjust medications according
Update hemoglobin A1c 9.4. D/w Daughter , she seems to manage her mother's medications well and monitor her blood glucose but sometimes patient does not follow diabetic diet when she is at the daycare.
Dementia:
Continue Namenda
Pleasant, confused at baseline.
Monitored behavioral status
DVT prophylaxis:
Lovenox SQ
CODE STATUS:
Full code
Total discharge time spent to see the patient, examine the patient, review data and lab results, discuss discharge plan with patient, daughter and nursing staff around 65 minutes
Anticipated Discharge: Today
Subjective/Interval History
-
Date of Service: April 25, 2024
she denies chest pain or sob or sob
Objective Data
-
Vital Signs:
Vital Signs
Temp Pulse Resp BP Pulse Ox
97.5 F 61 16 162/59 99
04/24/24 23:37 04/24/24 23:37 04/24/24 23:37 04/24/24 23:37 04/24/24 23:37
I&O
04/24/24 04/25/24 04/26/24
06:59 06:59 06:59
Intake Total 1020 / 1020 1140 / 1140
Balance 1020 / 1020 1140 / 1140
--- NOTE | 2024-04-25 10:10 | CM ---
CM reviewed chart, patient for discharge today. Call placed to patients daughter, Emelia, to discuss discharge. Emelia will provide transportation home. CM will continue to follow for all discharge planning needs.
Plan; home with daughter, declining VN at this time, return to day program.
[2024-04-25 11:00] VITALS: BP 132/50
--- NOTE | 2024-04-26 06:57 | W.DCSUMMARY ---
Discharge Summary
Discharge Data
Date of Admission: 04/20/24
Date of Discharge: 04/25/24
-
Pending Results: No
Hospital Course
84 years old female presented with Cough and shortness of breath. Patient had history of progressive weakness over the last few days. Patient had history of dementia. Patient tested positive for influenza A infection. She was started on Tamiflu
therapy. She was noted to have respiratory wheezing. She was started on nebulizer treatment. History of sick contact with flu at home. Patient did not have hypoxia. She finished course of Tamiflu in the hospital. Chest radiography did not show
pneumonia. Repeat chest x-ray after Tamiflu treatment did not show acute cardiopulmonary process. She was given one-time dose of Solu-Medrol with good improvement. She was given Mucinex. Blood glucose was monitored. Prolonged steroid therapy
was avoided to prevent uncontrolled hyperglycemia. Patient remained hemodynamically stable. She was discharged home in a stable condition.
Discharge Plan
-
Patient Disposition: Home with Home Care
Discharge Diagnosis/Procedures: Acute influenza A
Finished Tamiflu
Diet: Diabetic, Carb Controlled
Referrals:
Kevin Mcgee DO [Family Provider] -
Prescriptions:
New
guaifenesin [Mucinex] 600 mg tablet extended release 12hr
600 mg PO BID Qty: 20 0RF
benzonatate 200 mg capsule
200 mg PO BID PRN (Reason: Cough) Qty: 20 0RF
Continued
losartan 50 mg Tablet
50 mg PO DAILY
pioglitazone [Actos] 15 mg Tablet
15 mg PO DAILY
metformin 500 mg Tablet
500 mg PO BID
promethazine-DM 6.25-15 mg/5 mL Syrup
5 ml PO QIDPRN PRN (Reason: COUGH)
carvedilol [Coreg] 12.5 mg Tablet
12.5 mg PO BID
albuterol sulfate 2.5 mg /3 mL (0.083 %) Solution For Nebulization
2.5 mg INHALATION R Q4HPRN PRN (Reason: SOB)
indapamide 2.5 mg Tablet
2.5 mg PO DAILY
repaglinide 1 mg Tablet
1 mg PO BID
memantine 10 mg Tablet
10 mg PO BID
insulin glargine-yfgn 100 unit/mL (3 mL) Insulin Pen
20 unit SC BID
magnesium oxide 400 mg magnesium Tablet
400 mg PO DAILY
loperamide 2 mg Tablet
2 mg PO Q6HPRN PRN (Reason: diarrhea)
Discontinued
azithromycin 250 mg Tablet
0 mg PO .COMPLEX
Rx Instructions:
For 250 mg dose pack: take 500 mg today (day 1), then 250 mg for 4 days (days 2-5)
Discharge Orders:
Discharge Patient (As Directed); Ordered 04/25/24
Ordered By: Ayden Finley
Discharge Date and Time
Discharge Date/Time: 04/25/24 12:58
Print Language: ECUADORE[place]
== END 2024-04-25 12:58 | disposition home or self-care (01) | DRG 195 ==
LOC: 4 WEST ACU 08:13
PROVIDERS: Physician Assistant; ADMITTING PHYSICIAN Hospitalist; ATTENDING PHYSICIAN Internal Medicine; EMERGENCY PHYSICIAN Emergency Medicine; FAMILY PHYSICIAN Family Medicine
DX: J10.1 Influenza due to other identified influenza virus with other respiratory manifestations (principal); J45.909 Unspecified asthma, uncomplicated; E11.9 Type 2 diabetes mellitus without complications; I10 Essential (primary) hypertension; F03.90 Unspecified dementia, unspecified severity, without behavioral disturbance, psychotic disturbance, mood disturbance, and anxiety; Z79.84 Long term (current) use of oral hypoglycemic drugs; Z79.4 Long term (current) use of insulin; Z20.822 Contact with and (suspected) exposure to COVID-19
CPT/HCPCS: 71046; 80048; 80053; 81003; 82947; 82962; 83036; 83605; 85025; 87070; 87502; 87811; 94640; 96374; 97162; 97166; 97530; 99285